=== PATIENT | female | born 1955 | race African-American/Black ===

== ENCOUNTER → 2019-09-11 | Day surgery (SDC) | payer BC ==
[~2019-09-11] MED LIST: BUPIVACAINE 0.5 % PF 150 MG/30 ML VIAL ONE; DICL100G34 TD; FLUT1DIS3 INH; IBUP-1957 PO; LIDOCAINE 1%-EPI 1:100,000 20 ML VIAL ONE; LIDOCAINE HCL/MPF 1% 30 ML VIAL IJ ONE; MELO-105 PO; TRAM50TA2 PO; VALS1TAB54 PO
== END | disposition home or self-care (01) ==
LOC: DS 07:55
PROVIDERS: ATTEND Specialist
DX: M51.16 Intervertebral disc disorders with radiculopathy, lumbar region (principal); I10 Essential (primary) hypertension; E78.5 Hyperlipidemia, unspecified; J44.9 Chronic obstructive pulmonary disease, unspecified; Z88.0 Allergy status to penicillin; M54.5 Low back pain; G89.29 Other chronic pain; Z79.899 Other long term (current) drug therapy
CPT/HCPCS: 64483; 72100; A6402; J2704; J3490 ×3

== ENCOUNTER 2019-10-02 06:02 | Day surgery (SDC) | payer BC ==
[~2019-10-02] VITALS: Ht 157.5 cm; Wt 63.0 kg
--- NOTE | 2019-10-02 06:33 | NUR ---
PATIENT ADMITTED TO ROOM 207 BED 1 FOR DAY SURGERY. PATIENT CHANGED INTO A GOWN AND IV INITIATED. AT THE BEDSIDE. PATIENT ALERT AND ORIENTED X4 AND AMBULATORY. PATIENT OT HAVE SELECTIVE NERVE ROOT BLOCK L5 WITH DR. ALMARAZ. ORIENTED TO ROOM. BED DOWN AND LOCKED SRX2 VERBALIZED UNDERSTANDING TO CALL FOR ASSISTANCE IF NEEDED. SURGERY SCHEDULED FOR 0730 AM
[2019-10-02 06:35] VITALS: BP 130/83
[2019-10-02] MEDS ORDERED: LIDOCAINE HCL/MPF 1% 30 ML VIAL IJ ONE (07:27)
[2019-10-02] MEDS ORDERED: IOHEXOL 240MG/ML 0 ML IV ONE (07:27)
[2019-10-02] MEDS ORDERED: LIDOCAINE 0.5% HCL 50 ML VIAL ONE (07:28)
[2019-10-02] MEDS ORDERED: BUPIVACAINE 0.5 % PF 150 MG/30 ML VIAL ONE (07:28)
[2019-10-02 08:30] VITALS: BP 133/82
--- NOTE | 2019-10-02 08:30 | NUR ---
received patient from surgery ; alert and oriented x3 , denies pain at this time , VS are stable and pt on room air saturating well. Orders noted , patient started on regular diet. Order to d/c home if stable.
[2019-10-02] MEDS ORDERED: HYDROCODONE/APAP 10/325MG 1 EA TABLET PO PRN (09:00)
[2019-10-02] MEDS ORDERED: ONDANSETRON HCL/PF 4 MG/2 ML VIAL IVP PRN (09:00)
[2019-10-02] MEDS ORDERED: FLUT1DIS3 INH (09:34)
[2019-10-02] MEDS ORDERED: VALS1TAB54 PO (09:34)
[2019-10-02] MEDS ORDERED: DICL100G34 TD (09:34)
[2019-10-02] MEDS ORDERED: MELO-105 PO (09:34)
[2019-10-02] MEDS ORDERED: IBUP-1957 PO (09:34)
[2019-10-02] MEDS ORDERED: TRAM50TA2 PO (09:34)
[2019-10-02 10:23] VITALS: BP 131/79
--- NOTE | 2019-10-02 11:05 | NUR ---
PATIENT CLEARED FOR D/C TO HOME BY MD. PATIENT ALERT AND ORIENTED X4, BREATHING UNLABORED AND EVEN ON ROOM AIR , NOT IN ANY DISTRESS. PATIENT MEDICATED PRIOR DISCHARGE AND STATES PAIN 3/10 AT THIS MOMENT. EDUCATION AND D/C INSTRUCTIONS PROVIDED. PATIENT VERBALIZED UNDERSTANDING AND HAS A SCHEDULED APPOINTMENT WITH . IV LINE AND ID WRIST BAND REMOVED. PATIENT SIGNED D/C FORM AND VALUABLE FORM AND ALL BELONGINGS WITH THE PATIENT. ALL NEEDS ATTENDED. PATIENT SAFELY TRANSFERRED TO [facility] VIA WHEELCHAIR ACCOMPANIED BY [employer]EVE [employer]URNER AND .
== END 2019-10-02 16:00 | disposition home or self-care (01) ==
LOC: DS 06:02 → UNDOADMIN 06:04 → MEDSG2 06:04 → UNDODISIN 11:05 → DS 16:00
PROVIDERS: ATTEND Specialist
DX: M54.16 Radiculopathy, lumbar region (principal); I10 Essential (primary) hypertension; E78.5 Hyperlipidemia, unspecified; J44.9 Chronic obstructive pulmonary disease, unspecified; F17.210 Nicotine dependence, cigarettes, uncomplicated; K21.9 Gastro-esophageal reflux disease without esophagitis; Z88.0 Allergy status to penicillin; Z79.899 Other long term (current) drug therapy
CPT/HCPCS: 64483; 72020; 87081; J2704; J3490 ×4; Q9966